=== PATIENT | female | born 1960 | race Caucasian/White ===

== ENCOUNTER 2025-01-13 11:12 | Outpatient (REF) | payer BC, OTHER, SELFPAY ==
--- NOTE | 2025-01-13 16:00 | PAPFT_PTH ---
PATIENT: Nuvia Solomon LOC: [facility]#:[id number] AGE/SX: 64/F ROOM: RE01/13/[address]: Oneal Mora : 1960 BED: DIS: 01/13/2025 SPEC #: [id number] RECD: 01/14/25 13:04 STATUS: SARAHI ESCALANTE #: [id number] MARTIN: 01/13/25 16:[address]: Deepa Moralaide DEPT: [facility] Cytology RECD BY: Guerline Felton Tissues: 1 - CX/ENDOCX FOR PAP SMEARS Procedures: PAP THIN PREP/[facility] Screening HPV DNA PROBE Comments: [id number] (HPV 16 & 18/45)
== END 2025-01-13 11:13 | disposition home or self-care (01) ==
LOC: NCHCN 11:12
PROVIDERS: PCP Nurse Practitioner Family; Visit Provider Nurse Practitioner Family
DX: Z11.51 Encounter for screening for human papillomavirus (HPV) (principal); Z01.419 Encounter for gynecological examination (general) (routine) without abnormal findings
CPT/HCPCS: 88142; 87624

== ENCOUNTER 2025-01-20 00:49 | Outpatient (CLI) | payer BC, OTHER, SELFPAY ==
--- NOTE | 2025-01-20 | DI.RAD_ITS ---
Exam(s) XR SHOULDER LT COMPLETE 2+V EXAM: XR SHOULDER LT COMPLETE 2+V CLINICAL HISTORY: PAIN LEFT SHOULDER M25.512. TECHNIQUE: 2D digital imaging was performed. COMPARISON: No exams were available for comparison FINDINGS: Five views No evidence of fracture or dislocation or abnormal soft tissue calcifications. The subacromial space appears unremarkable. There are no obvious degenerative changes in glenohumeral and AC joints. Ips ilateral clavicle unremarkable. Bone density is normal. There are no osseous lesions. No evidence of os acromial IMPRESSION: No significant osseous findings in the left shoulder. DATA REPOSITORY: RADIATION DOSE DELIVERED:
== END 2025-01-20 01:09 ==
PROVIDERS: PCP Nurse Practitioner Family; Visit Provider Nurse Practitioner Family
DX: M25.512 Pain in left shoulder (principal)
CPT/HCPCS: 73030

== ENCOUNTER 2025-01-20 09:07 | Outpatient (CLI) | payer BC, OTHER, SELFPAY ==
[2025-01-20 09:34] LABS: ALT 35 U/L (14-59); AST 21 U/L (15-37); Albumin 3.9 g/dL (3.4-5.0); Alkaline Phosphatase 101 U/L (46-116); Anion Gap 4.5 mmol/L (3-11); BUN 12 mg/dL (7-18); Bilirubin, Total 0.8 mg/dL (0.2-1.0); CO2 31.5 mmol/L (21.0-32.0); CREATININE 0.7 mg/dL (0.55-1.02); Calcium 9.1 mg/dL (8.5-10.1); Calculated LDL 98 mg/dL (<100); Cholesterol 190 mg/dL (<200); Estimated GFR 97.72 (mL/min/1.73m2); Glucose 105 mg/dL (74-106); HDL Cholesterol 79 mg/dL (>or=50); Total Protein 7.4 g/dL (6.4-8.2); Triglyceride 68 mg/dL (<150)
[2025-01-20 09:42] LABS: Chloride 103 mmol/L (98-107); Potassium 4.2 mmol/L (3.5-5.1); Sodium 141 mmol/L (136-145)
== END 2025-01-20 09:08 | disposition home or self-care (01) ==
LOC: LBO 09:08
PROVIDERS: PCP Nurse Practitioner Family; Visit Provider Nurse Practitioner Family
DX: Z13.1 Encounter for screening for diabetes mellitus (principal); Z13.220 Encounter for screening for lipoid disorders
CPT/HCPCS: 36415; 80053; 80061

== ENCOUNTER 2025-03-24 01:35 | Outpatient (CLI) | payer BC, OTHER, SELFPAY ==
--- NOTE | 2025-03-24 07:45 | DI.MRI_ITS ---
Exam(s) MR UPPER JOINT LT WO EXAM: MR UPPER JOINT LT WO CLINICAL HISTORY: L SHOULDER PAIN,lt rotator cuff tear,m75.102. TECHNIQUE: Multiplanar multisequence MRI was performed. COMPARISON: CR XR SHOULDER LT COMPLETE 2+V from 01/20/2025 FINDINGS: BONES: There is no fracture or contusion pattern. JOINTS: The acromioclavicular joint is normal. The glenohumeral joint is normal. No joint effusion is seen. TENDONS: Supraspinatus: Unremarkable. Infraspinatus: Unremarkable. Subscapularis: There is tendinosis of the subscapularis. Teres Minor: Unremarkable. Biceps and [place]: Unremarkable. MUSCLES: Unremarkable. GLENOID LABRUM: Unremarkable on this noncontrast examination. SOFT TISSUES: Unremarkable. LIGAMENTS: Unremarkable. OTHER: There is a small amount of fluid in the subacromial subdeltoid bursa. IMPRESSION: 1. There is no evidence of a rotator cuff or labral tear on this noncontrast examination. 2. There is a small amount of fluid in the subacromial subdeltoid bursa. DATA REPOSITORY:
== END 2025-03-24 01:55 ==
LOC: DI 01:36
PROVIDERS: PCP Nurse Practitioner Family; Visit Provider Student in an Organized Health Care Education/Training Program
DX: M75.102 Unspecified rotator cuff tear or rupture of left shoulder, not specified as traumatic (principal)
CPT/HCPCS: 73221